=== PATIENT | female | born 1995 | race Two or more races ===

== ENCOUNTER 2017-02-14 00:04 | Emergency (ER) | payer MEDICAID ==
[2017-02-14] MEDS ORDERED: ONDANSETRON 4 MG ODT TAB ONE (00:43)
[2017-02-14 00:56] LABS: SPECIFIC GRAVITY 1.025 (1.001-1.030); URINE APPEARANCE CLEAR; URINE BILIRUBIN NEGATIVE (NEGATIVE); URINE BLOOD NEGATIVE (NEGATIVE); URINE COLOR YELLOW; URINE GLUCOSE (UA) NEGATIVE (NEGATIVE); URINE LEUKOCYTE ESTERASE NEGATIVE (NEGATIVE); URINE NITRITE NEGATIVE (NEGATIVE); URINE PROTEIN NEGATIVE (NEGATIVE); URINE UROBILINOGEN NORMAL (0-1 mg/dl)
[2017-02-14 00:59] LABS: HCG,QUALITATIVE URINE NEGATIVE
[2017-02-14] MEDS ORDERED: IBUPROFEN 600 MG TABLET ONE (01:11)
[2017-02-16 08:59] LABS: CHLAMYDIA BD Negative (Negative); N.GONORRHOEAE BD Negative (Negative); SOURCE Urine (())
== END 2017-02-14 01:18 | disposition home or self-care (01) ==
LOC: ED 00:04
DX: R11.2 Nausea with vomiting, unspecified (principal); J02.9 Acute pharyngitis, unspecified; R05 Cough